=== PATIENT | male | born 1990 | race Caucasian/White ===

== ENCOUNTER 2018-04-05 14:37 | Emergency (ER) | payer BC ==
[~2018-04-05] VITALS: Ht 170.2 cm; Wt 108.9 kg
[2018-04-05 14:47] VITALS: BP_SYST 164
--- NOTE | 2018-04-05 14:50 | NUR ---
Immanuel beaulieu in ED - 04/05/18 at 1459 by [email or web address] Lorena Deleon SCRIBING MACHINE OPERATOR at bedside examining patient
--- NOTE | 2018-04-05 14:51 | NUR ---
Patient to ER bed 07 to gown for evaluation. Side rails up.
--- NOTE | 2018-04-05 14:53 | NUR ---
Lorena Deleon METAL RIVET MACHINE OPERATOR at bedside examining patient.
--- NOTE | 2018-04-05 14:55 | NUR ---
Pt brought by self, A&Ox4, pt presents to ER with wound on L hand, pt afebrile, pt states he had stitches on February 22 at [facility] and stitches came out, no active bleeding noted, VS WNL, will continue to monitor.
[2018-04-05 15:25] VITALS: BP_SYST 140
--- NOTE | 2018-04-05 15:25 | NUR ---
Patient given written and verbal discharge instructions and verbalizes understanding. ER MD discussed with patient the results and treatment provided. Patient in stable condition. ID arm band removed. Rx of Keflex, Mupirocin given. Patient educated on pain management and to follow up with PMD. Pain Scale 0. Opportunity for questions provided and answered. Medication side effect fact sheet provided. Patient left ER in no acute distress, ambulating without difficulty with slow, steady gait.
== END 2018-04-05 15:25 | disposition home or self-care (01) ==
LOC: SED 14:37
DX: S61.412A Laceration without foreign body of left hand, initial encounter (principal); F17.210 Nicotine dependence, cigarettes, uncomplicated; R03.0 Elevated blood-pressure reading, without diagnosis of hypertension; W26.8XXA Contact with other sharp object(s), not elsewhere classified, initial encounter; Y93.89 Activity, other specified; Y92.69 Other specified industrial and construction area as the place of occurrence of the external cause; Y99.8 Other external cause status
CPT/HCPCS: 99283